=== PATIENT | male | born 1960 | race Caucasian/White ===

== ENCOUNTER → 2016-12-14 | Outpatient (CLI) | payer OTHER ==
[~2016-12-14] MED LIST: LEVOTHYROXINE200 MC1 PO; METOPROLOL SUCC50 MG PO; ZANTAC150 MG PO
== END | disposition home or self-care (01) ==
LOC: EKG 10:53
DX: I27.2 Other secondary pulmonary hypertension (principal); R94.31 Abnormal electrocardiogram [ECG] [EKG]; I71.2 Thoracic aortic aneurysm, without rupture
CPT/HCPCS: 93306